=== PATIENT | female | born 1980 | race American Indian/Alaskan Native ===

== ENCOUNTER 2020-11-03 12:55 | Emergency (ER) | payer SELFPAY ==
--- NOTE | 2020-11-03 13:26 | EDM.PDOC ---
ED HPI GENERAL MEDICAL PROBLEM - General Chief Complaint: Upper Extremity Injury/Pain Stated Complaint: RT HAND RING FINGER Time Seen by Provider: 11/03/20 13:19 Source of Information: Reports: Patient, RN History Limitations: Reports: No Limitations - History of Present Illness INITIAL COMMENTS - FREE TEXT/NARRATIVE: States that she has "terrible" pain around the distal tip of the right ring finger. It is swollen and very tender. She denies any injury. States that it has been swelling for the last couple of days and now she can't stand it. Has not taken anything for it. She denies any drainage from it. Onset: Gradual Location: Reports: Upper Extremity, Right Right Finger-Ring Pain Score (Numeric/FACES): 10 - Related Data Allergies Allergy/AdvReac Type Severity Reaction Status Date / Time No Known Allergies Allergy Verified 11/03/20 13:07 Home Meds: Home Meds . [No Known Home Meds] 11/03/20 [History] Past Medical History - Past Health History Medical/Surgical History: Denies Medical/Surgical History - Past Surgical History GI Surgical History: Reports: Cholecystectomy Female Surgical History: Reports: Tubal Ligation Social & Family History - Tobacco Use Tobacco Use Status *Q: Never Tobacco User Review of Systems - Review of Systems Review Of Systems: See Below Constitutional: Reports: No Symptoms Musculoskeletal: Reports: Other (see HPI) Skin: Reports: Other (see HPI) ED EXAM, GENERAL - Physical Exam Exam: See Below Exam Limited By: No Limitations General Appearance: Alert, WD/WN, Mild Distress Extremities: Other (On the distal tip of the right ring finger she does have swelling that is very tender. She has an area around a hangnail that is soft but no drainage noted.) Skin Exam: Warm, Dry, Intact Course - Vital Signs Last Recorded V/S: Last Vital Signs Temp 99.2 F 11/03/20 13:02 Pulse 91 11/03/20 13:02 Resp 16 11/03/20 13:02 BP 134/83 11/03/20 13:02 Pulse Ox 100 11/03/20 13:02 Departure - Departure Time of Disposition: 13:24 Disposition: Home, Self-Care 01 Condition: Good Clinical Impression: Paronychia - Discharge Information *PRESCRIPTION DRUG MONITORING PROGRAM REVIEWED*: Not Applicable *COPY OF PRESCRIPTION DRUG MONITORING REPORT IN PATIENT DELFIN: Not Applicable Forms: ED Department Discharge Additional Instructions: soak in warm soapy water cephalexin 500 mg twice a day for 10 days recheck in the CLINIC if any new concerns or not improving tylenol or advil as needed for discomfort Sepsis Event Note (ED) - Evaluation Sepsis Screening Result: No Definite Risk - Problem List & Annotations (1) Paronychia SNOMED Code(s): 79817773 Code(s): QVA6034 - Status: Acute Priority: High - Problem List Review Problem List Initiated/Reviewed/Updated: Yes
== END 2020-11-03 13:30 | disposition home or self-care (01) ==
LOC: CC.ED 12:55
DX: L03.011 Cellulitis of right finger (principal)
CPT/HCPCS: 99283